=== PATIENT | male | born 1980 | race Hispanic/Latino ===

== ENCOUNTER 2019-02-25 12:04 | Emergency (ER) | payer OTHER ==
[~2019-02-25] VITALS: Ht 182.9 cm; Wt 102.3 kg
[2019-02-25 12:05] VITALS: BP 144/76
[2019-02-25] MEDS ORDERED: TOPA50TA8 PO (12:12)
[2019-02-25] MEDS ORDERED: IBUP-1022 PO (12:12)
[2019-02-25] MEDS ORDERED: EMLA CREAM 5GM (LIDOCAINE/PRILOCAINE) TOP ONE (12:30)
== END 2019-02-25 13:30 | disposition home or self-care (01) ==
LOC: M ED 12:04
DX: S01.01XA Laceration without foreign body of scalp, initial encounter (principal); W22.8XXA Striking against or struck by other objects, initial encounter; Y92.148 Other place in prison as the place of occurrence of the external cause; B19.20 Unspecified viral hepatitis C without hepatic coma; Z87.891 Personal history of nicotine dependence